=== PATIENT | male | born 1980 | race Caucasian/White ===

== ENCOUNTER 2025-05-10 17:50 | Emergency (ER) | payer MEDICAID, OTHER ==
[~2025-05-10 17:50] MED LIST: Sodium Chloride 0.9% 10 ML Syringe FLUSH PRN
[2025-05-10 17:58] LABS: BASOPHILS PERCENT AUTO 0.3 % (0.0-1.0); EOSINOPHILS PERCENT AUTO 5.2 % (1.0-3.0); HEMOGLOBIN 15.5 g/dL (14.0-18.0); LYMPHOCYTES PERCENT AUTO 35.7 % (20.5-50.1); MEAN CORPUSCULAR HEMOGLOBIN 29.8 pg (27.0-34.0); MEAN CORPUSCULAR HGB CONC 35.2 g/dL (33.0-35.0); MEAN CORPUSCULAR VOLUME 84.6 fL (80-100); NEUTROPHILS PERCENT AUTO 50.8 % (42.2-75.2); PLATELET COUNT,PLT 262 10^3/uL (150-450); WHITE BLOOD CELL COUNT,WBC 6.9 10^3/uL (5.0-10.0)
[2025-05-10] MEDS: LORazepam 2 MG/ML SDV IM ONE (18:10)
[2025-05-10 18:13] LABS: INR 0.9 (0.9-1.2); PROTHROMBIN TIME 9.9 SEC (9.0-12.0)
[2025-05-10 18:19] LABS: ALANINE AMINOTRANSFERASE,ALT 52 U/L (16-63); ALBUMIN 3.8 g/dL (3.4-5.0); ALKALINE PHOSPHATASE 114 U/L (46-116); ANION GAP 15.3 mEq/L (7-13); ASPARTATE AMNIOTRANSFERASE,AST 33 U/L (15-37); BILIRUBIN TOTAL 0.3 mg/dL (0.2-1.0); BLOOD UREA NITROGEN,BUN 9 mg/dL (7-18); BUN/CREATININE RATIO 9.7 (No establ ref range); CALCIUM 8.4 mg/dL (8.5-10.1); CARBON DIOXIDE,CO2 27 mmol/L (21-32); CHLORIDE,CL 110 mmol/L (98-107); CREATININE 0.93 mg/dL (0.70-1.30); GLUCOSE RANDOM 114 mg/dL (70-99); MAGNESIUM 2.4 mg/dL (1.8-2.4); POTASSIUM,K 3.3 mmol/L (3.5-5.1); PROTEIN TOTAL,TP 7.5 g/dL (6.4-8.2); SODIUM,NA 149 mmol/L (136-145)
[2025-05-10 18:20] LABS: ESTIMATED GFR 104 mL/min (>=60); ETHANOL BLOOD MEDICAL 358 mg/dL (0)
[2025-05-10] MEDS ORDERED: Thiamine 100 MG in Sodium Chloride 0.9% 100 ML IV ONE (18:25)
[2025-05-10] MEDS: LORazepam 2 MG/ML SDV IVPUSH ONE (18:34)
[2025-05-10] MEDS: LORazepam 2 MG/ML SDV ONE (18:35)
[2025-05-10] MEDS: Lactated Ringers 1,000 ML IV STA (18:35)
[2025-05-10] MEDS: Thiamine 200 MG/2 ML MDV IVPUSH ONE (18:35)
== END 2025-05-11 03:07 | disposition home or self-care (01) ==
LOC: DL.ED 17:50 → MERGE 17:50 → DL.ED 05-11 03:07
DX: F10.120 Alcohol abuse with intoxication, uncomplicated (principal); Z88.2 Allergy status to sulfonamides; Z79.899 Other long term (current) drug therapy; Y90.8 Blood alcohol level of 240 mg/100 ml or more
CPT/HCPCS: 36415; 70450; 80053; 80307; 83735; 85025; 85610; 96361; 96372; 96374; 96375; 99285; J2060; J3411; J7120; 99284